=== PATIENT | male | born 1965 | race Caucasian/White ===

== ENCOUNTER 2023-01-08 21:12 | Emergency (ER) | payer OTHER ==
[~2023-01-08] VITALS: Ht 167.6 cm; Wt 85.3 kg
[2023-01-08] MEDS ORDERED: HYDROCHLOROTHIA25 MG (21:35)
[2023-01-08] MEDS ORDERED: LOSARTAN POTASS25 MG (21:35)
== END 2023-01-08 23:22 | disposition home or self-care (01) ==
LOC: ER 21:12
DX: M25.561 Pain in right knee (principal); Z88.6 Allergy status to analgesic agent

== ENCOUNTER 2023-01-15 19:44 | Emergency (ER) | payer OTHER ==
[~2023-01-15] VITALS: Ht 170.2 cm; Wt 86.2 kg
[~2023-01-15 19:44] MED LIST: HYDROCHLOROTHIA25 MG; LOSARTAN POTASS25 MG
== END 2023-01-15 21:13 | disposition home or self-care (01) ==
LOC: ER 19:44
DX: M79.661 Pain in right lower leg (principal); Z88.6 Allergy status to analgesic agent

== ENCOUNTER 2023-01-22 21:50 | Emergency (ER) | payer OTHER ==
[~2023-01-22] VITALS: Ht 162.6 cm; Wt 65.8 kg
[2023-01-23] MEDS ORDERED: DOLOGESIC-DF 51 EACH PO (01:54)
== END 2023-01-23 02:32 | disposition home or self-care (01) ==
LOC: ER 21:50
DX: M25.569 Pain in unspecified knee (principal); G89.29 Other chronic pain; Z88.6 Allergy status to analgesic agent

== ENCOUNTER 2023-04-30 11:27 | Emergency (ER) | payer OTHER ==
[~2023-04-30] VITALS: Ht 170.2 cm; Wt 90.7 kg
[~2023-04-30 11:27] MED LIST changes: +DOLOGESIC-DF 51 EACH PO
[2023-04-30] MEDS ORDERED: ORPHENADRINE CITRATE 30 MG/ML AMPUL IM ONE (12:45)
[2023-04-30] MEDS ORDERED: TRAMADOL HCL 50 MG TABLET PO ONE (12:45)
[2023-04-30 14:18] LABS: HEMATOCRIT 42.3 % (39.0-48.0); HEMOGLOBIN 14.2 g/dL (13-16.00); MEAN CELL VOLUME 75.6 fL (80.0-100.00); MEAN CORPUSCULAR HEMOGLOBIN 25.4 pg (27.00-32.0); MEAN CORPUSCULAR HGB CONC 33.5 g/dl (32.0-36.0); PLATELET COUNT 216 K/uL (150-450); RED CELL DISTRIBUTION WIDTH 15.2 % (11.5-14.5)
[2023-04-30 14:37] LABS: CALCIUM 9.1 mg/dL (8.5-10.1); CREATININE SERUM 1.06 mg/dL (0.70-1.30); GFR 71.51; POTASSIUM 3.59 mEq/L (3.5-5.1)
[2023-04-30] MEDS ORDERED: PERCOGESIC EXT1 EACH PO (14:54)
[2023-04-30] MEDS ORDERED: ZANAFLEX2 M1 PO (14:54)
== END 2023-04-30 14:59 | disposition home or self-care (01) ==
LOC: ER 11:28
PROVIDERS: General Practice
DX: R00.2 Palpitations (principal); M54.9 Dorsalgia, unspecified; Z88.6 Allergy status to analgesic agent